=== PATIENT | female | born 1970 | race Asian ===

== ENCOUNTER 2019-09-29 15:38 | Emergency (ER) | payer OTHER ==
[~2019-09-29] VITALS: Ht 160 cm; Wt 59.9 kg
[2019-09-29] MEDS ORDERED: AMOX TR-K CLV1 EAC1 ORAL (16:10)
[2019-09-29] MEDS ORDERED: LOSARTAN-HCTZ1 EAC2 ORAL (16:10)
[2019-09-29] MEDS ORDERED: IBUPROFEN600 M1 ORAL (16:10)
[2019-09-29] MEDS ORDERED: ATORVASTATIN CA20 MG ORAL (16:10)
[2019-09-29 16:15] VITALS: BP 130/82
[2019-09-29 16:52] LABS: BASOPHILS % (AUTO) 1.4 % (0.0-2.0); EOSINOPHILS % (AUTO) 0.5 % (0.0-3.0); HEMATOCRIT 43.1 % (37.0-47.0); HEMOGLOBIN 13.8 G/DL (12.0-16.0); MEAN CORPUSCULAR VOLUME 94 FL (80-99); MONOCYTES % (AUTO) 6.6 % (1.0-10.0); NEUTROPHILS % (AUTO) 53.5 % (45.0-75.0); PLATELET COUNT 341 K/UL (150-450); RED CELL DISTRIBUTION WIDTH 11.8 % (11.6-14.8); WHITE BLOOD COUNT 6.2 K/UL (4.8-10.8)
[2019-09-29 16:54] LABS: APPEARANCE,URINE CLEAR; BILIRUBIN, URINE NEGATIVE (NEGATIVE); COLOR,URINE PALE YELLOW; GLUCOSE, URINE (UA) NEGATIVE (NEGATIVE); KETONES,URINE NEGATIVE (NEGATIVE); LEUKOCYTE ESTERASE ,URINE NEGATIVE (NEGATIVE); NITRITE,URINE NEGATIVE (NEGATIVE); PH,URINE 7 (4.5-8.0); PROTEIN,URINE NEGATIVE (NEGATIVE); UROBILINOGEN,URINE NORMAL MG/DL (0.0-1.0)
--- NOTE | 2019-09-29 17:04 | Diagnostic Imaging Report ---
Indication: Shortness of breath Technique: One view of the chest Comparison: none Findings: Lungs and pleural spaces are clear. The heart size is normal. Impression: Negative
[2019-09-29 17:09] LABS: ANION GAP 14 mmol/L (5-15); BLOOD UREA NITROGEN 7 mg/dL (7-18); CALCIUM 8.8 MG/DL (8.5-10.1); CARBON DIOXIDE 26 MMOL/L (21-32); CHLORIDE 103 MMOL/L (98-107); CREATININE 0.6 MG/DL (0.55-1.30); POTASSIUM 3.5 MMOL/L (3.5-5.1); SODIUM 143 MMOL/L (136-145)
[2019-09-29 17:15] LABS: INR 0.9 (0.9-1.1)
[2019-09-29 17:16] LABS: LACTATE DEHYDROGENASE 129 U/L (81-234)
[2019-09-29 17:24] LABS: ALANINE AMINOTRANSFERASE 23 U/L (12-78); ALBUMIN 4.2 G/DL (3.4-5.0); ALBUMIN/GLOBULIN RATIO 1.1 (1.0-2.7); ALKALINE PHOSPHATASE 52 U/L (46-116); ASPARTATE AMINO TRANSFERASE 18 U/L (15-37); BILIRUBIN,TOTAL 0.5 MG/DL (0.2-1.0); CKMB < 0.5 NG/ML (0.0-3.6); CREATINE KINASE 45 U/L (26-308); FERRITIN 360 NG/ML (8-388)
--- NOTE | 2019-09-29 17:51 | Emergency Room Report ---
History of Present Illness General Chief Complaint: Flu Like Symptoms Source: Patient Present Illness HPI 49-year-old female with no significant past medical history here complaining of 2 weeks of feeling lethargic and chills as well as few days of palpitation. Patient got tested for call with about 1 week ago and tested negative and also has been prescribed Augmentin by primary doctor and continues to take it. Vital signs within normal limits other than heart rate of 124 upon arrival. Denies any chest pain upon arrival shortness of breath due to palpitation. Denies any cough. Denies urinary symptoms. Reports that she has history of hypothyroidism however takes medication and has a regular doctor will follow. Denies any diarrhea, loss of taste and smell. Patient is a Nepali speaking only. Allergies: Coded Allergies: No Known Allergies (Unverified , 09/29/19) COVID-19 Screening Contact w/high risk pt: No Recent Travel to affected area: No Experienced COVID-19 symptoms?: Yes COVID-19 symptoms experienced: Flu-Like Symptoms COVID-19 Testing performed [employer]: Yes - 2 weeks ago COVID-19 Screening: Negative COVID-19 COVID-19 Testing Source: Nasal Patient History Past Medical History: see triage record Past Surgical History: none Pertinent Family History: none Now: No Immunizations: UTD Reviewed Nursing Documentation: PMH: Agreed; PSxH: Agreed Nursing Documentation-PMH Past Medical History: No History, Except For Hx Hypertension: Yes Hx Diabetes: Yes Review of Systems All Other Systems: negative except mentioned in HPI Physical Exam Vital Signs Date Time Temp Pulse Resp B/P (MAP) Pulse Ox O2 Delivery O2 Flow Rate FiO2 09/29/19 15:59 99.0 124 17 130/82 (98) 96 Room Air Sp02 EP Interpretation: reviewed, abnormal - Elevated heart rate General Appearance: no apparent distress, alert, GCS 15, non-toxic Head: normocephalic, atraumatic Eyes: bilateral eye normal inspection, bilateral eye PERRL ENT: hearing grossly normal, normal pharynx, no angioedema, normal voice Neck: full range of motion, supple/symm/no masses Respiratory: chest non-tender, lungs clear, normal breath sounds, no rhonchi, speaking full sentences Cardiovascular #1: regular rate, rhythm, no edema, no murmur Cardiovascular #2: 2+ carotid (R), 2+ carotid (L), 2+ radial (R), 2+ radial (L) , 2+ dorsalis pedis (R), 2+ dorsalis pedis (L) Gastrointestinal: normal bowel sounds, non tender, soft, non-distended, no guarding, no rebound Rectal: deferred Genitourinary: no CVA tenderness Musculoskeletal: back normal Neurologic: alert, motor strength/tone normal, oriented x3, sensory intact, responsive, speech normal Psychiatric: judgement/insight normal, memory normal, mood/affect normal, no suicidal/homicidal ideation Skin: no rash Lymphatic: no adenopathy Medical Decision Making PA Attestation All my diagnosis and treatment plans were reviewed ad discussed with my supervising physician Dr. Navas Diagnostic Impression: Primary Impression: Palpitation Additional Impressions: SOB (shortness of breath) Influenza-like symptoms ER Course 49-year-old female with no significant past medical history here complaining of 2 weeks of feeling lethargic and chills as well as few days of palpitation. Patient got tested for call with about 1 week ago and tested negative and also has been prescribed Augmentin by primary doctor and continues to take it. Vital signs within normal limits other than heart rate of 124 upon arrival. Denies any chest pain upon arrival shortness of breath due to palpitation. Denies any cough. Denies urinary symptoms. Reports that she has history of hypothyroidism however takes medication and has a regular doctor will follow. Denies any diarrhea, loss of taste and smell. Patient is a Nepali speaking only. Ddx considered but are not limited to: VT, Angina, COPD, GERD,, palpitation dyspnea due to ARDS, morgan virus Vital signs: are WNL, pt. is afebrile H&PE are most consistent with palpitation, influenza-like symptoms, shortness of breath ORDERS: ER sepsis order, LDH, d-dimer, CRP, COVID swab Tylenol ED INTERVENTIONS: 1 L of NS bolus, heart rate was brought down to 91 DISCHARGE: At this time pt. is stable for d/c to home. Will provide printed patient care instructions, and any necessary prescriptions. Care plan and follow up instructions have been discussed with the patient prior to discharge. Patient to follow primary doctor, take medication as directed, increase oral hydration, if worsening symptoms return to the emergency room EKG Diagnostic Results Rate: tachycardiac Rhythm: other - Slightly tachycardic ST Segments: no acute changes Other Impression No acute ST changes Chest X-Ray Diagnostic Results Chest X-Ray Diagnostic Results : Chest X-Ray Ordered: Yes # of Views/Limited/Complete: 1 View Indication: Other EP Interpretation: Yes EMILIA Xray: Interpretation reviewed, by supervising MD, and agrees with findings. Interpretation: no consolidation, no effusion, no pneumothorax Impression: No acute disease Electronically Signed by: Nadir Mari PA-C Last Vital Signs Date Time Temp Pulse Resp B/P (MAP) Pulse Ox O2 Delivery O2 Flow Rate FiO2 09/29/19 16:15 98.6 78 17 130/82 96 Room Air Disposition: HOME, SELF-CARE Condition: Stable Scripts Acetaminophen* (TYLENOL EXTRA STRENGTH*) 500 Mg Tablet 500 MG ORAL Q8H PRN for Prn Headache/Temp > 101, #30 TAB 0 Refills Prov: Nadir Chinchilla 09/29/19 Referrals: NON PHYSICIAN (PCP) Patient Instructions: Palpitations, [id number], Shortness of Breath, Easy-to- Read Additional Instructions: Continue taking her medication, follow-up with your primary doctor, increase oral hydration, if worsening symptoms return to the emergency room Nadir Chinchilla Sep 29, 2019 17:51
[2019-09-29] MEDS ORDERED: TYLENOL EXTRA500 MG ORAL (17:53)
[2019-09-29 18:20] VITALS: BP 119/84
== END 2019-09-29 18:30 | disposition home or self-care (01) ==
LOC: EMR 16:00
DX: R00.2 Palpitations (principal); R06.02 Shortness of breath; E03.9 Hypothyroidism, unspecified; E11.9 Type 2 diabetes mellitus without complications; I10 Essential (primary) hypertension; R00.0 Tachycardia, unspecified
CPT/HCPCS: 36415; 71045; 80053; 81003; 82550; 82553; 82728; 83605; 83615; 83880; 84484; 85025; 85379; 85610; 85730; 86140; 87040; 93005; 96360; 99284; J7030